=== PATIENT | female | born 1955 | race Caucasian/White ===

== ENCOUNTER 2019-08-05 13:23 | Inpatient (IN) | payer OTHER, SELFPAY ==
[2019-08-05] VITALS (13 sets, daily range): BP systolic 110–158; BP diastolic 75–103; PULSE 57–112; RESP 16–21; TEMP 36–36.8; O2SAT 92–97; BMI 26.6; BMI 27.2
--- NOTE | ~2019-08-05 | XR_ITS ---
EXAMINATION: XR chest 2V DATE: 08/05/2019 14:32 INDICATION: Chest pain TECHNIQUE: PA and lateral views of the chest were obtained. COMPARISON: Chest radiograph dated 03/31/2018 FINDINGS: Right lower lobar airspace opacities projecting over the right hemidiaphragm. There is blunting at th e right posterior sulcus suggesting small right pleural effusion. Mild left infrahilar opacities. No pneumothorax. The cardiomediastinal silhouette is normal. Atherosclerotic aorta. IMPRESSION: 1. Airspace opacities in the right lower lobe and left infrahilar region which could represent atelec tasis or pneumonia. 2. Possible small right pleural effusion. Reviewed, dictated and finalized at location A. GRADUATE INTERN IMPRESSION: 1. Airspace opacities in the right lower lobe and left infrahilar region which could represent atelectasis or pneumonia. 2. Possible small right pleural effusion.
--- NOTE | 2019-08-05 13:35 | ECG_ITS ---
Measurements Intervals [place] Rate: 89 P: VA: 0 QRS: -32 QRSD: 127 T: 46 QT: 399 QTc: 488 Interpretive Statements ATRIAL FIBRILLATION LEFT AXIS DEVIATION LEFT BUNDLE BRANCH BLOCK BASELINE ARTIFACT- I, II, III, V5-V6 ABNORMAL ECG Electronically Signed On 08-05-2019 14:21:17 STUDENT ASSISTANT by Zac Harvey D.O.
[2019-08-05 13:49] LABS: Basophils Percent Auto 0.6 % (0.2-1.2); Eosinophils Absolute Auto 0.2 K/mm3 (0-0.3); Eosinophils Percent Auto 2.2 % (0-4.4); Hematocrit 35.9 % (37.0-47.0); Hemoglobin 10.8 g/dL (12.0-15.0); Immature Granulocyte Absolute 0.03 K/mm3 (0.00-0.031); Immature Granulocyte Percent A 0.4 % (0-0.5); Lymphocytes Absolute Auto 1.21 K/mm3 (0.9-3.2); Lymphocytes Percent Auto 18.1 % (18.3-44.2); Mean Corpuscular HGB Conc 30.1 g/dl (32-36); Mean Corpuscular Hemoglobin 27.6 pg (26-34); Mean Corpuscular Volume 91.8 fl (80-100); Monocytes Absolute Auto 0.4 K/mm3 (0.1-0.6); Neutrophils Absolute Auto 4.9 K/mm3 (1.3-6.7); Neutrophils Percent Auto 72.7 % (45.5-73.1); Platelet Count Result 204 k/mm3 (150-375); Red Blood Count 3.91 M/mm3 (4.2-5.4); Red Cell Distribution Width 16.9 % (11.5-14.5); White Blood Count 6.7 K/mm3 (4.5-10.0)
[2019-08-05 13:58] LABS: INR 1.2; Prothrombin Time 14.7 Seconds (11.1-14.7)
[2019-08-05 13:59] LABS: Partial Thromboplastin Time 29.3 SECONDS (22.3-36.8)
[2019-08-05 14:01] LABS: Blood Urea Nitrogen 11 mg/dL (7-17); Calcium 9.2 mg/dL (8.4-10.2); Carbon Dioxide 26 mmol/L (22-30); Chloride 102 mmol/L (98-107); Estimated CRCL calculation 82 ml/min; Estimated Glomerular Filt Rate > 60; Glucose 172 mg/dL (65-105); Potassium 3.9 mmol/L (3.4-5.0); Sodium 140 mmol/L (137-145)
[2019-08-05 14:12] LABS: Troponin I < 0.012 ng/mL (0.000-0.034)
--- NOTE | 2019-08-05 14:47 | ED.ARRPALP ---
HPI - Arrhythmia/Palpitations General Chief Complaint: Chest Pain Stated Complaint: chest heavyness, palp Time Seen by Provider: 08/05/19 14:28 Source: patient and RN notes reviewed Mode of arrival: ambulatory Limitations: no limitations History of Present Illness HPI narrative: Pt is a y/o female who presents to the ED with c/o heart palpitations. Pt states she started to experience SOB , chest heaviness, and dizziness last night when she was walking from the car to her house. She had to stop before she could get into the house. Pt states she saw Dr. Ramos today and was prompted to come here. Pt states she does not have any symptoms besides the heart palpitations at rest. Pt reports a subjective fever, a cough, and diaphoresis, but denies BLE edema. Pt reports being on Eliquis anticoagulants, and Metoprolol with her most recent dose taken this morning. She will take another dose this evening. Pt also reports a PMHx of a STENT and Afib. MD complaint: heart racing Onset (ago): day(s) (last evening) Duration: constant Arrhythmia history: atrial fibrillation Associated symptoms: shortness of breath, diaphoresis and other (chest heaviness; dizziness; subjective fever; cough) Related Data Allergies Allergy/AdvReac Type Severity Reaction Status Date / Time cephalexin Allergy Unknown Nausea Verified 08/05/19 14:24 codeine Allergy Unknown Unknown Verified 08/05/19 14:24 Sulfa (Sulfonamide Allergy Unknown Unknown Verified 08/05/19 14:24 Antibiotics) ciprofloxacin AdvReac Unknown stomach Verified 08/05/19 14:24 ache, pains Review of Systems Review of Systems: All systems reviewed & are unremarkable except as noted in HPI and below Constitutional: Constitutional: Reports fever(s) (subjective) Cardiovascular: Cardiovascular: Reports diaphoresis, Denies edema (BLE), Reports palpitations and Reports other (chest heaviness) Respiratory: Respiratory: Reports cough and Reports dyspnea Neurologic: Reports dizziness PMFSH Past Medical History Medical History (Updated 08/05/19 @ 16:56 by Delia Tran MD) Afib Ankle fracture, right Anxiety Arthritis Depression Diabetes Hypercholesterolemia Hypertension Neuropathy UTI (urinary tract infection) Surgical History Surgical History (Updated 08/05/19 @ 14:55 by Nanci Abdi) H/O cardiac catheterization History of tubal ligation Social History Social History (Updated 08/05/19 @ 14:53 by Nanci Abdi) Smoking status: Never smoker Gender identity (if verbalized by the patient): Female Comments Dr. Live Exam Narrative: Exam Narrative: GENERAL: Well-appearing, well-nourished, and in no acute distress. HEAD: Normocephalic, atraumatic EYES: PERRLA and EOMI, conjunctiva clear without discharge THROAT:Mucous membranes moist, Oropharynx normal without erythema, exudate, peritonsillar swelling or fluctuance NECK: Supple, without lymphadenopathy or mass RESPIRATORY: No respiratory distress, Airway patent, Respirations non-labored, Clear to auscultation without rales, rhonchi or wheeze ABDOMEN: Soft, nontender, nondistended, normal active bowel sounds. No masses. No rebound or guarding, No organomegaly. EXTREMITIES: No edema, normal strength with full range of motion. SKIN: Warm, dry, normal color without rash NEURO: Alert and oriented x3. CN 2-12 grossly intact. No focal deficits. PSYCH: Normal mood and affect. Cardio: Rate: tachycardic Rhythm: abnormal rhythm irregularly irregular Course Course Emergency Course: Patient presented to ER from Dr. Lorenzo's office with c/o midsternal chest pressure and heart racing with exertion. Patient is painfree in ER. She has history of CAD with stent so she is high risk with chest pain. so she will be admitted. PAtient's rate ranges from 90 to 105. She may need adjustment of some medications. Patient reported cough but she has no fever and no elevated wbc. Consultations Consultation #1: Discussed case wit
[2019-08-05 15:36] LABS: NT Pro B Type Natriuretic Pept 5630 PG/ML (5-100)
[2019-08-05] MEDS: ASPIRIN 81 MG CHEWABLE TABLET 324 MG PO (15:51)
[2019-08-05] MEDS: DOXYCYCLINE HYCLATE 100 MG TABLET PO (15:52)
[2019-08-05 18:16] LABS: Troponin I < 0.012 ng/mL (0.000-0.034)
--- NOTE | 2019-08-05 18:25 | PM.CNCAR ---
Assessment and Plan Additional Plan Current symptoms are somewhat suggestive of myocardial ischemia. Patient's atrial fibrillation is chronic and appears to be relatively well controlled. Recent echocardiogram does not show evidence of systolic LV dysfunction or significant valvulopathy. I would recommend scheduling in arranging for follow-up coronary angiography. This will be scheduled on Thursday morning her apixaban needs to be discontinued so that can proceed without undo hemorrhagic risk the remainder of her medical regimen should be continued as per her home meds History of Present Illness History of Present Illness Consult date/time: 08/05/19 18:25 Reason For Visit: chest pain/chronic atrial fibrilation Narrative: This is a 63-year-old woman with whom I have no previous a interactions with but apparently she has a history of coronary artery disease and chronic atrial fibrillation. She was admitted to the hospital after being directed to the emergency room from our office when she had an appointment today with Dr. Lorenzo. The patient appears to be in no distress lying in bed watching television when I came in the room to see her. She states that she wanted to be seen in the office today because she was not feeling well for the last 2 or 3 weeks. Her principal symptoms are the sense of exertional shortness of breath. She is also experiencing some exertional central chest heaviness. Patient states that prior to several weeks ago she has not been having the symptoms she feels that normally she can conduct her activities of daily living without too much trouble but at this point with minimal activity she is having the symptoms. She not having any other sense of orthopnea PND or accumulating edema. When she reported these symptoms in the office earlier today she was directed to the emergency room and admitted. I have reviewed her record which goes back a couple of years prior to see her this evening. Apparently she has a history of chronic atrial fibrillation which dates back to many years she also has a history of coronary artery disease she had some ischemic symptoms and underwent angiography here at [facility] in May of 2017. Apparently she had a high-grade lesion in the right right PDA that was treated successfully with a drug-eluting stent by Dr. Lake. She has been followed with Dr. cates in the office since she left the practice. The last 2 years of office notes indicate occasional episodes of course she is complaining of exertional shortness of breath and other times when she is not. She I believe she has had at least 1 if not 2 nuclear stress is in follow-up since her intervention which have not shown any substantial abnormalities. By echocardiogram she is known to have normal left ventricular systolic function and mild mitral valve regurgitation. The patient's vital signs are essentially stable her she is in atrial fib with the relatively well-controlled ventricular response at least at bed rest her biomarkers at least on the 1st set do not show any evidence of acute coronary syndrome. Had a lengthy discussion with the patient about the fact that she probably needs to have an ischemia evaluation given the symptoms and the options of nuclear stress testing and/or follow-up angiography were discussed in detail. Review of Systems Constitutional: Constitutional: Reports fatigue Eyes: Eyes: Reports no additional eye complaints ENT: Reports system reviewed and no additional complaints, except as documented Cardiovascular: Cardiovascular: Reports chest pain and Reports palpitations Respiratory: Respiratory: Reports dyspnea and Reports dyspnea on exertion Gastrointestinal: Gastrointestinal: Reports no additional gastrointestinal complaints Genitourinary: Genitourinary: Reports no additional female genitourinary complaints Musculoskeletal: Musculoskeletal: Reports no additional musculoskeletal complaints Integumentary/Lakshmi
--- NOTE | 2019-08-05 19:42 | PM.IMHP ---
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 The patient is known to have chronic atrial fibrillation and is chronically anticoagulated with Eliquis. She reports having intermittent chest pain with exertional activities over the past couple of weeks. Today while she was at her doctor's office she started to experience chest pain with associated shortness of breath. She also experience palpitations. She tells me that recently she has been battling multiple UTIs and just finished a course of antibiotics a few days ago when she had a urinary tract infection with associated hematuria. She also reports that over the past few days she started having dysuria once again. She denies any active hematuria at this time. The patient also does report a subjective fever and nonproductive coughing but denies any significant lower extremity swelling, headache, focal neurological symptoms, nausea, vomiting, diarrhea, or rectal bleeding. The patient was evaluated emergency room today and her initial and 2nd troponin are negative. EKG was performed which demonstrated atrial fibrillation but no significant ST segment elevation or depression. Cardiology has been consulted by ER provider and has already evaluated the patient at bedside. She has no other complaints at this time and currently she is chest pain-free. She currently also denies any palpitations or other symptoms. Review of Systems Review of Systems: All systems reviewed & are unremarkable except as noted in HPI and below PMFSH Past Medical History Medical History Afib Ankle fracture, right Anxiety Arthritis Depression Diabetes Hypercholesterolemia Hypertension Neuropathy UTI (urinary tract infection) Surgical History Surgical History H/O cardiac catheterization History of tubal ligation Family History Family History Father Acute myocardial infarction Mother Diabetes mellitus Social History Social History Smoking status: Never smoker Alcohol intake: never Substance use: never Gender identity (if verbalized by the patient): Female Spiritual care concerns: No Agree to blood products: Yes Meds Home Medications and Allergies Home Medications Medication Instructions Recorded Confirmed Type alprazolam 0.5 mg PO TID 08/05/19 08/05/19 History apixaban [Eliquis] 5 mg PO BID 08/05/19 08/05/19 History cholecalciferol (vitamin D3) 2,000 unit PO DAILY 08/05/19 08/05/19 History [Vitamin D3] clopidogrel 75 mg PO DAILY 08/05/19 08/05/19 History cyanocobalamin (vitamin B-12) 1,000 mcg PO DAILY 08/05/19 08/05/19 History [Vitamin B-12] cyclobenzaprine 10 mg PO TID 08/05/19 08/05/19 History ferrous gluconate 324 mg PO DAILY 08/05/19 08/05/19 History furosemide 40 mg PO DAILY 08/05/19 08/05/19 History glipizide 2.5 mg PO DAILY 08/05/19 08/05/19 History lisinopril 5 mg PO DAILY 08/05/19 08/05/19 History magnesium oxide 400 mg PO BID 08/05/19 08/05/19 History metformin [Glucophage] 1,000 mg PO DAILY 08/05/19 08/05/19 History metoprolol tartrate 100 mg PO BID 08/05/19 08/05/19 History multivit with min-folic acid 1 mg PO DAILY 08/05/19 08/05/19 History [Adult One Daily Multivitamin] oxycodone-acetaminophen 1 tablet PO Q6H PRN 08/05/19 08/05/19 History paroxetine HCl 40 mg PO DAILY 08/05/19 08/05/19 History potassium chloride 10 meq PO DAILY 08/05/19 08/05/19 History pregabalin [Lyrica] 150 mg PO QID 08/05/19 08/05/19 History rosuvastatin [Crestor] 10 mg PO DAILY
[2019-08-05 20:32] LABS: Glucose Point of Care 181 (65-105)
[2019-08-05 20:43] LABS: Basophils Percent Auto 0.4 % (0.2-1.2); Eosinophils Absolute Auto 0.2 K/mm3 (0-0.3); Eosinophils Percent Auto 2.8 % (0-4.4); Hematocrit 30.8 % (37.0-47.0); Hemoglobin 9.6 g/dL (12.0-15.0); Immature Granulocyte Absolute 0.02 K/mm3 (0.00-0.031); Immature Granulocyte Percent A 0.4 % (0-0.5); Lymphocytes Percent Auto 18.7 % (18.3-44.2); Mean Corpuscular HGB Conc 31.2 g/dl (32-36); Mean Corpuscular Hemoglobin 27.8 pg (26-34); Mean Corpuscular Volume 89.3 fl (80-100); Mean Platelet Volume 10.7 fl (7.4-10.4); Monocytes Absolute Auto 0.3 K/mm3 (0.1-0.6); Neutrophils Absolute Auto 3.8 K/mm3 (1.3-6.7); Neutrophils Percent Auto 71.7 % (45.5-73.1); Platelet Count Result 161 k/mm3 (150-375); Red Blood Count 3.45 M/mm3 (4.2-5.4); Red Cell Distribution Width 16.7 % (11.5-14.5); White Blood Count 5.4 K/mm3 (4.5-10.0)
[2019-08-05 20:53] LABS: INR 1.2; Prothrombin Time 14.5 Seconds (11.1-14.7)
[2019-08-05 20:54] LABS: Partial Thromboplastin Time 29.6 SECONDS (22.3-36.8)
[2019-08-05 21:06] LABS: Troponin I < 0.012 ng/mL (0.000-0.034)
[2019-08-05 21:08] LABS: Add Urine Microscopic? YES; Appearance Urine Clear (Clear); Bilirubin Urine Negative (Negative); Blood Urine 2+ (Negative); Color Urine Yellow (Yellow); Glucose Urine UA Negative (Negative); Ketones Urine Negative (Negative); Leukocyte Esterase Ur 3+ LEU/UL (NEGATIVE); Nitrate Urine Negative (Negative); Protein Urine Negative (Negative); Specific Grav Ur 1.011 (1.001-1.035); Squamous Epithelial Cell Urine Rare /hpf (Few); Urobilinogen Urine Negative mg/dL (<2.0); WBC Urine >75 /hpf (0-3)
[2019-08-05] MEDS: TRAZODONE HCL 50 MG TABLET PO (21:16)
[2019-08-05] MEDS: PREGABALIN 75 MG CAPSULE 150 MG PO (21:17)
[2019-08-05] MEDS: METOPROLOL TARTRATE 50 MG TAB 100 MG PO (21:17)
[2019-08-05] MEDS: HEPARIN SOD/D5W 100 UNITS/ML 25,000 UNITS/250 ML BAG 7 UNITS IV CONT (21:18)
[2019-08-05] MEDS: ALPRAZOLAM 0.5 MG TABLET PO (21:18)
[2019-08-05] MEDS: HEPARIN SODIUM 5,000 UNITS/ML VIAL 3500 UNITS IV PUSH (21:18)
[2019-08-06] VITALS (16 sets, daily range): BP systolic 121–155; BP diastolic 68–96; PULSE 85–109; RESP 12–20; TEMP 36.1–36.8; O2SAT 90–96
[2019-08-06 03:56] LABS: Basophils Percent Auto 0.5 % (0.2-1.2); Eosinophils Absolute Auto 0.2 K/mm3 (0-0.3); Eosinophils Percent Auto 2.5 % (0-4.4); Hematocrit 36.6 % (37.0-47.0); Hemoglobin 10.9 g/dL (12.0-15.0); Immature Granulocyte Absolute 0.02 K/mm3 (0.00-0.031); Immature Granulocyte Percent A 0.3 % (0-0.5); Lymphocytes Absolute Auto 1.39 K/mm3 (0.9-3.2); Lymphocytes Percent Auto 22.9 % (18.3-44.2); Mean Corpuscular HGB Conc 29.8 g/dl (32-36); Mean Corpuscular Hemoglobin 27.4 pg (26-34); Monocytes Absolute Auto 0.3 K/mm3 (0.1-0.6); Monocytes Percent Auto 4.6 % (2.6-8.5); Neutrophils Absolute Auto 4.2 K/mm3 (1.3-6.7); Neutrophils Percent Auto 69.2 % (45.5-73.1); Platelet Count Result 192 k/mm3 (150-375); Red Blood Count 3.98 M/mm3 (4.2-5.4); Red Cell Distribution Width 16.9 % (11.5-14.5); White Blood Count 6.1 K/mm3 (4.5-10.0)
[2019-08-06 04:00] LABS: Partial Thromboplastin Time 35.9 SECONDS (22.3-36.8)
[2019-08-06 04:16] LABS: Platelet Estimate Adequate (Adequate)
[2019-08-06 04:17] LABS: Microcytosis 1+ (NORMAL)
[2019-08-06 04:18] LABS: Ovalocytes 1+ (NORMAL)
[2019-08-06] MEDS: HEPARIN SODIUM 5,000 UNITS/ML VIAL 4000 UNITS IV PUSH ×2 (05:04→18:04)
[2019-08-06] MEDS: glipiZIDE XL 2.5 MG TAB.ER.24 PO (09:04)
[2019-08-06] MEDS: FUROSEMIDE 40 MG TABLET PO (09:04)
[2019-08-06] MEDS: ALPRAZOLAM 0.5 MG TABLET PO ×3 (09:05→21:13)
[2019-08-06] MEDS: PREGABALIN 75 MG CAPSULE 150 MG PO ×3 (09:05→21:13)
[2019-08-06] MEDS: POTASSIUM CHLORIDE 10 MEQ TABLET.ER PO (09:05)
[2019-08-06] MEDS: METOPROLOL TARTRATE 50 MG TAB 100 MG PO ×2 (09:06→18:03)
[2019-08-06] MEDS: CHOLECALCIFEROL 1,000 UNIT TABLET 2000 UNITS PO (09:06)
[2019-08-06] MEDS: metFORMIN HCL 500 MG TABLET 1000 MG PO (09:06)
[2019-08-06] MEDS: ROSUVASTATIN 10 MG TABLET PO (09:06)
[2019-08-06] MEDS: CYANOCOBALAMIN 1,000 MCG TABLET 1000 MCG PO (09:07)
[2019-08-06] MEDS: PAROXETINE 20 MG TABLET 40 MG PO (09:07)
[2019-08-06 09:31] LABS: Glucose Point of Care 158 (65-105)
--- NOTE | 2019-08-06 10:48 | PM.PNCARD ---
Progress Note: A&P Additional Plan Plans are to conduct ischemia evaluation with follow-up coronary angiography on Thursday Hospitalists have initiated IV heparin which is reasonable Plan to did discontinue this on Thursday morning prior to angiography Further recommendations are pending angiographic findings Time Spent With Patient Time with patient: less than 15 minutes Subjective Interval history: Asymptomatic at bed rest Reports RVR and shortness of breath with modest activity continues Exam Const: General: comfortable and no acute distress HENMT: Mouth: Yes moist mucous membranes Eyes: Sclera: sclerae normal Pupils: PERRL Neck: Neck: supple and no JVD Thyroid: thyroid normal Resp: Effort & Inspection: normal respiratory effort Auscultation: clear to auscultation bilaterally Cardio: Rhythm: abnormal rhythm regularly irregular Skin: General skin exam: normal color Extrem: General: normal to inspection Objective Data Vital Signs Vital Signs: Vital Signs - 24 hr 08/05/19 13:31 08/05/19 14:20 08/05/19 14:22 Temperature 36.0 C L 36.8 C Pulse Rate 70 112 H 108 H Respiratory Rate 16 16 Blood Pressure 110/75 157/103 H Pulse Oximetry 95 96 08/05/19 15:05 08/05/19 15:18 08/05/19 15:44 Temperature Pulse Rate 89 57 L 95 Respiratory Rate 16 18 Blood Pressure 155/103 H 152/94 H 142/89 H Pulse Oximetry 97 96 08/05/19 15:50 08/05/19 16:39 08/05/19 17:04 Temperature 36.4 C Pulse Rate 95 95 106 H Respiratory Rate 21 H 16 18 Blood Pressure 130/78 130/78 158/95 H Pulse Oximetry 96 96 92 08/05/19 18:00 08/05/19 20:00 08/05/19 21:17 Temperature 36.3 C L Pulse Rate 108 H 102 H 101 H Respiratory Rate 16 Blood Pressure 134/75 Pulse Oximetry 93 08/05/19 22:00 08/06/19 00:00 08/06/19 02:00 Temperature 36.1 C L Pulse Rate 99 93 87 Respiratory Rate 20 Blood Pressure 128/95 H Pulse Oximetry 90 08/06/19 04:00 08/06/19 06:00 08/06/19 08:00 Temperature 36.6 C Pulse Rate 87 98 109 H Respiratory Rate 16 Blood Pressure 140/96 H Pulse Oximetry 96 08/06/19 08:40 08/06/19 09:06 08/06/19 10:00 Temperature 36.1 C L Pulse Rate 106 H 95 108 H Respiratory Rate 12 Blood Pressure 155/89 H Pulse Oximetry 93 Intake/Output Intake/Output: Intake & Output 08/03/19 08/04/19 08/05/19 08/06/19 23:59 23:59 23:59 23:59 Intake Total 933 Output Total 200 1200 Balance -200 -267 Meds/Results Medications: Active Medications Generic Name Dose Route Start Last Admin Trade Name Freq PRN Reason Stop Dose Admin Alprazolam 0.5 mg 08/05/19 17:00 08/06/19 09:05 Xanax PO 0.5 mg TID PATRICIA Administration Cyanocobalamin 1,000 mcg 08/06/19 09:00 08/06/19 09:07 Vitamin B-12 Tab PO 1,000 mcg DAILY PATRICIA Administration Cyclobenzaprine HCl 10 mg 08/06/19 21:00 Flexeril PO HS PATRICIA Dextrose 12.5 gm 08/05/19 19:55 Dextrose 50% Syringe IV PUSH PRN PRN Hypoglycemia Protocol Furosemide 40 mg 08/06/19 09:00 08/06/19 09:04 Lasix Tablet PO 40 mg DAILY PATRICIA Administration Glipizide 2.5 mg 08/06/19 09:00 08/06/19 09:04 Glucotrol Xl PO 2.5 mg DAILY PATRICIA Administration Glucagon 1 mg 08/05/19 19:55 Glucagon For Inj IM PRN PRN Hypoglycemia Protocol Glucose 15 gm 08/05/19 19:55 Glutose 15 PO PRN PRN Hypoglycemia Protocol Heparin Sodium (Porcine) 4,000 units 08/05/19 19:54 08/06/19 05:04 Heparin Sodium IV PUSH 4,000 units PRN PRN Administration aPTT less than 55 seconds Heparin Sodium (Porcine) 2,000 units 08/05/19 19:54 Heparin Sodium IV PUSH PRN PRN aPTT 55 - 70 seconds Heparin Sodium/Dextrose 25,000 units in 250 mls @ 9 mls/hr 08/05/19 20:35 08/06/19 05:10 Heparin Sodium/D5w 100 Units/Ml IV CONT 900 units/hr .Q24H PATRICIA 9 mls/hr Titration Protocol 900 UNITS/HR Dextrose 1,000 mls @ 100 mls/hr 12
[2019-08-06] MEDS: MAGNESIUM OXIDE 400 MG TABLET PO (10:50)
[2019-08-06 11:15] LABS: Partial Thromboplastin Time 64.9 SECONDS (22.3-36.8)
[2019-08-06] MEDS: HEPARIN SODIUM 5,000 UNITS/ML VIAL 2000 UNITS IV PUSH (11:31)
[2019-08-06 12:10] LABS: Glucose Point of Care 202 (65-105)
--- NOTE | 2019-08-06 13:38 | PM.IMPN ---
Progress Note: A&P Assessment and Plan (1) Chest pain: Qualifiers: Chest pain type: unspecified Qualified Code(s): R07.9 - Chest pain, unspecified Code(s): R07.9 - Chest pain, unspecified Status: Acute Assessment and Plan: Patient has been admitted to IMU for observation, continue telemetry. Continue aspirin therapy. Pain and treat any acute chest pain or nitroglycerin. trend troponin, pt to have heart cath on thursday as she is high risk, History of , AF, DM and previous CAD with stent, high risk.Pt to continue on heparin drip for now. (2) Dysuria: Code(s): R30.0 - Dysuria Status: Acute Assessment and Plan: Will check a urinalysis reflex culture. Pt is being treated for UTI, pt to follow with Urology for her recurrent urinary symptoms. (3) Diabetes: Code(s): E11.9 - Type 2 diabetes mellitus without complications Status: Chronic Assessment and Plan: Accu-Cheks, sliding scale insulin coverage. Continue home metformin and glipizide. (4) Hypertension: Code(s): I10 - Essential (primary) hypertension Status: Chronic Assessment and Plan: Monitor blood pressure. continue beta-martine. (5) Afib: Qualifiers: Atrial fibrillation type: other persistent Qualified Code(s): I48.19 - Other persistent atrial fibrillation Code(s): I48.91 - Unspecified atrial fibrillation Status: Chronic Assessment and Plan: Currently rate controlled. Continue aspirin therapy. Will hold Eliquis for now. Pt to continue on heparin drip for now, for anticoagulation (6) Hypercholesterolemia: Code(s): E78.00 - Pure hypercholesterolemia, unspecified Status: Chronic Assessment and Plan: Continue statin therapy. (7) Neuropathy: Code(s): G62.9 - Polyneuropathy, unspecified Status: Chronic Assessment and Plan: Continue cyclobenzaprine (8) Normocytic anemia: Code(s): D64.9 - Anemia, unspecified Status: Acute Assessment and Plan: Likely anemia of chronic disease.Monitor H&H. Transfuse p.r.n.. 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 The patient is known to have chronic atrial fibrillation and is chronically anticoagulated with Eliquis. Pt sees DR Jacinto, pt having ongoing, retrosternal chest pain. Pt for heart cath on thursday. Review of Systems Review of Systems: All systems reviewed & are unremarkable except as noted in HPI and below Exam Const: General: cooperative, no acute distress, alert and awake Nutritional Appearance: obese Orientation/consciousness: oriented x3 HENMT: Head: normal to inspection General nose exam: external nose normal Face and sinus: normal facial exam Mouth: Yes oral mucosae normal and Yes oropharynx normal Eyes: Pupils: PERRL EOM: EOM intact bilaterally Neck: Neck: supple and no JVD Thyroid: thyroid normal Lymphatic: lymphadenopathy not noted Resp: Effort & Inspection: normal respiratory effort Auscultation: clear to auscultation bilaterally Cardio: Rate: tachycardic Rhythm: abnormal rhythm irregularly irregular Heart sounds: no murmurs GI: Inspection: normal to inspection Auscultation: normal bowel sounds Skin: General skin exam: normal color and no rashes or lesions noted Neuro: General: oriented x3 Cranial nerves: Yes CN's II-XII intact bilaterally and Yes PERRL Speech: normal speech Motor exam (neuro): strength 5/5 throughout Sensory Exam: normal sensation Extrem: General: normal to inspection and edema (Mild bilateral edema) Psych: Mental Status: mental status grossly normal Affect: normal affect Objective Data Vital Signs Vital Signs: Vital Signs - 24 hr 08/05/19 14:20 08/05/19 14:22
[2019-08-06 17:18] LABS: Glucose Point of Care 198 (65-105)
[2019-08-06 19:55] LABS: Glucose Point of Care 131 (65-105)
[2019-08-06] MEDS: TRAZODONE HCL 50 MG TABLET PO (21:13)
[2019-08-06] MEDS: CYCLOBENZAPRINE HCL 10 MG TABLET PO (21:13)
[2019-08-06] MEDS: HEPARIN SOD/D5W 100 UNITS/ML 25,000 UNITS/250 ML BAG 12 UNITS IV CONT (21:14)
[2019-08-07] VITALS (15 sets, daily range): BP systolic 128–163; BP diastolic 77–98; PULSE 85–111; RESP 12–18; TEMP 35.6–36.9; O2SAT 92–97
[2019-08-07 01:25] LABS: Partial Thromboplastin Time 81.1 SECONDS (22.3-36.8)
[2019-08-07 07:16] LABS: Blood Urea Nitrogen 11 mg/dL (7-17); Calcium 8.4 mg/dL (8.4-10.2); Carbon Dioxide 29 mmol/L (22-30); Chloride 102 mmol/L (98-107); Estimated CRCL calculation 82 ml/min; Estimated Glomerular Filt Rate > 60; Glucose 182 mg/dL (65-105); Potassium 3.3 mmol/L (3.4-5.0); Sodium 139 mmol/L (137-145)
[2019-08-07 07:48] LABS: Partial Thromboplastin Time 86.1 SECONDS (22.3-36.8)
[2019-08-07 08:33] LABS: Glucose Point of Care 203 (65-105)
--- NOTE | 2019-08-07 09:57 | PM.PNCARD ---
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 Further recommendations are pending completion of that procedure tomorrow Subjective Interval history: Patient reports to be comfortable this morning. Lengthy discussion about the patient regarding tomorrow's planned catheterization and need to discontinue heparin in the morning prior to the procedure Exam Const: General: comfortable and no acute distress HENMT: Mouth: Yes moist mucous membranes Eyes: Sclera: sclerae normal Pupils: PERRL Neck: Neck: supple and no JVD Thyroid: thyroid normal Resp: Effort & Inspection: normal respiratory effort Auscultation: clear to auscultation bilaterally Cardio: Rhythm: abnormal rhythm irregularly irregular Skin: General skin exam: normal color Extrem: General: normal to inspection Objective Data Vital Signs Vital Signs: Vital Signs - 24 hr 08/06/19 10:00 08/06/19 12:00 08/06/19 14:00 Temperature 36.8 C Pulse Rate 108 H 92 97 Respiratory Rate 16 Blood Pressure 142/89 H Pulse Oximetry 95 08/06/19 16:00 08/06/19 18:00 08/06/19 18:03 Temperature 36.1 C L Pulse Rate 104 H 109 H 109 H Respiratory Rate 16 Blood Pressure 136/94 H Pulse Oximetry 96 08/06/19 19:34 08/06/19 20:00 08/06/19 21:58 Temperature 36.8 C Pulse Rate 85 91 87 Respiratory Rate 16 Blood Pressure 121/68 Pulse Oximetry 92 08/07/19 00:00 08/07/19 02:00 08/07/19 04:00 Temperature 36.9 C Pulse Rate 88 87 92 Respiratory Rate 16 Blood Pressure 163/80 H Pulse Oximetry 96 08/07/19 05:55 08/07/19 08:00 08/07/19 08:15 Temperature 36.1 C L Pulse Rate 92 110 H 111 H Respiratory Rate 12 Blood Pressure 131/91 H Pulse Oximetry 95 Intake/Output Intake/Output: Intake & Output 08/04/19 08/05/19 08/06/19 08/07/19 23:59 23:59 23:59 23:59 Intake Total 2155 350 Output Total 200 1200 400 Balance -200 955 -50 Meds/Results Medications: Active Medications Generic Name Dose Route Start Last Admin Trade Name Freq PRN Reason Stop Dose Admin Alprazolam 0.5 mg 08/05/19 17:00 08/06/19 21:13 Xanax PO 0.5 mg TID PATRICIA Administration Cyanocobalamin 1,000 mcg 08/06/19 09:00 08/06/19 09:07 Vitamin B-12 Tab PO 1,000 mcg DAILY PATRICIA Administration Cyclobenzaprine HCl 10 mg 08/06/19 21:00 08/06/19 21:13 Flexeril PO 10 mg HS PATRICIA Administration Dextrose 12.5 gm 08/05/19 19:55 Dextrose 50% Syringe IV PUSH PRN PRN Hypoglycemia Protocol Furosemide 40 mg 08/06/19 09:00 08/06/19 09:04 Lasix Tablet PO 40 mg DAILY PATRICIA Administration Glipizide 2.5 mg 08/06/19 09:00 08/06/19 09:04 Glucotrol Xl PO 2.5 mg DAILY PATRICIA Administration Glucagon 1 mg 08/05/19 19:55 Glucagon For Inj IM PRN PRN Hypoglycemia Protocol Glucose 15 gm 08/05/19 19:55 Glutose 15 PO PRN PRN Hypoglycemia Protocol Heparin Sodium (Porcine) 4,000 units 08/05/19 19:54 08/06/19 18:04 Heparin Sodium IV PUSH 4,000 units PRN PRN Administration aPTT less than 55 seconds Heparin Sodium (Porcine) 2,000 units 08/05/19 19:54 08/06/19 11:31 Heparin Sodium IV PUSH 2,000 units PRN PRN Administration aPTT 55 - 70 seconds Heparin Sodium/Dextrose 25,000 units in 250 mls @ 12 mls/hr 08/05/19 20:35 08/07/19 07:50 Heparin Sodium/D5w 100 Units/Ml IV CONT 1,200 units/hr .[id number] PATRICIA 12 mls/hr Titration Protocol Dextrose 1,000 mls @ 100 mls/hr 08/05/19 19:55 Dextrose 5% 1,000 Ml IVPB PRN PRN Hypoglycemia Protocol Ceftriaxone Sodium/Dextrose 1 gm in 50 mls @ 100 mls/hr 08/06/19 22:00 08/07/19 07:36 Rocephin 1 Gm/D5w 50 Ml IVPB Infused Q24H PATRICIA Infusion Insulin Aspart 3 - 6 units 08/06/19 08:00 08/07/19 09:54 Novolog SUB-Q Not Given [facility]
[2019-08-07] MEDS: CYANOCOBALAMIN 1,000 MCG TABLET 1000 MCG PO (10:01)
[2019-08-07] MEDS: glipiZIDE XL 2.5 MG TAB.ER.24 PO (10:01)
[2019-08-07] MEDS: CHOLECALCIFEROL 1,000 UNIT TABLET 2000 UNITS PO (10:01)
[2019-08-07] MEDS: ALPRAZOLAM 0.5 MG TABLET PO ×3 (10:01→20:42)
[2019-08-07] MEDS: PREGABALIN 75 MG CAPSULE 150 MG PO ×3 (10:01→20:43)
[2019-08-07] MEDS: METOPROLOL TARTRATE 50 MG TAB 100 MG PO ×2 (10:01→17:13)
[2019-08-07] MEDS: FUROSEMIDE 40 MG TABLET PO (10:01)
[2019-08-07] MEDS: PAROXETINE 20 MG TABLET 40 MG PO (10:02)
[2019-08-07] MEDS: POTASSIUM CHLORIDE 10 MEQ TABLET.ER PO (10:02)
[2019-08-07] MEDS: metFORMIN HCL 500 MG TABLET 1000 MG PO (10:02)
[2019-08-07] MEDS: ROSUVASTATIN 10 MG TABLET PO (10:02)
[2019-08-07] MEDS: MAGNESIUM OXIDE 400 MG TABLET PO (10:02)
[2019-08-07 12:04] LABS: Glucose Point of Care 157 (65-105)
--- NOTE | 2019-08-07 13:30 | PM.IMPN ---
Progress Note: A&P Assessment and Plan (1) Chest pain: Qualifiers: Chest pain type: unspecified Qualified Code(s): R07.9 - Chest pain, unspecified Code(s): R07.9 - Chest pain, unspecified Status: Acute Assessment and Plan: Patient has been admitted to IMU for observation, continue telemetry. Continue aspirin therapy. Pain and treat any acute chest pain with nitroglycerin.pt to have heart cath on thursday as she is high risk, History of , AF, DM and previous CAD with stent, high risk.Pt to continue on heparin drip for now. (2) Dysuria: Code(s): R30.0 - Dysuria Status: Acute Assessment and Plan: Will check a urinalysis reflex culture. Pt is being treated for UTI, pt to follow with Urology for her recurrent urinary symptoms. (3) Diabetes: Code(s): E11.9 - Type 2 diabetes mellitus without complications Status: Chronic Assessment and Plan: Accu-Cheks, sliding scale insulin coverage. Continue home metformin and glipizide. (4) Hypertension: Code(s): I10 - Essential (primary) hypertension Status: Chronic Assessment and Plan: Monitor blood pressure. continue beta-martine. (5) Afib: Qualifiers: Atrial fibrillation type: other persistent Qualified Code(s): I48.19 - Other persistent atrial fibrillation Code(s): I48.91 - Unspecified atrial fibrillation Status: Chronic Assessment and Plan: Currently rate controlled. Continue aspirin therapy and beta martine. Will hold Eliquis for now. Pt to continue on heparin drip for now, for anticoagulation (6) Hypercholesterolemia: Code(s): E78.00 - Pure hypercholesterolemia, unspecified Status: Chronic Assessment and Plan: Continue statin therapy. 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 The patient is known to have chronic atrial fibrillation and is chronically anticoagulated with Eliquis. Pt sees DR Jacinto, pt having ongoing, retrosternal chest pain and few palpitations. Pt for heart cath on thursday. Review of Systems Review of Systems: All systems reviewed & are unremarkable except as noted in HPI and below Exam Const: General: cooperative, no acute distress, alert and awake Nutritional Appearance: obese Orientation/consciousness: oriented x3 HENMT: Head: normal to inspection General nose exam: external nose normal Face and sinus: normal facial exam Mouth: Yes oral mucosae normal and Yes oropharynx normal Eyes: Pupils: PERRL EOM: EOM intact bilaterally Neck: Neck: supple and no JVD Thyroid: thyroid normal Lymphatic: lymphadenopathy not noted Resp: Effort & Inspection: normal respiratory effort Auscultation: clear to auscultation bilaterally Cardio: Rate: tachycardic Rhythm: abnormal rhythm irregularly irregular Heart sounds: no murmurs GI: Inspection: normal to inspection Auscultation: normal bowel sounds Skin: General skin exam: normal color and no rashes or lesions noted Neuro: General: oriented x3 Cranial nerves: Yes CN's II-XII intact bilaterally and Yes PERRL Speech: normal speech Motor exam (neuro): strength 5/5 throughout Sensory Exam: normal sensation Extrem: General: normal to inspection and edema (Mild bilateral edema) Psych: Mental Status: mental status grossly normal Affect: normal affect Objective Data Vital Signs Vital Signs: Vital Signs - 24 hr 08/06/19 14:00 08/06/19 16:0
[2019-08-07 15:27] LABS: Partial Thromboplastin Time 64.8 SECONDS (22.3-36.8)
[2019-08-07] MEDS: HEPARIN SOD/D5W 100 UNITS/ML 25,000 UNITS/250 ML BAG 12 UNITS IV CONT (15:41)
[2019-08-07] MEDS: HEPARIN SODIUM 5,000 UNITS/ML VIAL 2000 UNITS IV PUSH (15:44)
[2019-08-07 16:10] LABS: Glucose Point of Care 139 (65-105)
[2019-08-07] MEDS: CYCLOBENZAPRINE HCL 10 MG TABLET PO (20:42)
[2019-08-07] MEDS: TRAZODONE HCL 50 MG TABLET PO (20:43)
[2019-08-07 21:13] LABS: Glucose Point of Care 146 (65-105)
[2019-08-07 22:07] LABS: Partial Thromboplastin Time 107.2 SECONDS (22.3-36.8)
[2019-08-08] VITALS (28 sets, daily range): BP systolic 105–156; BP diastolic 79–109; PULSE 62–116; RESP 13–20; TEMP 35.9–36.6; O2SAT 90–100
[2019-08-08 04:48] LABS: Partial Thromboplastin Time 85.6 SECONDS (22.3-36.8)
[2019-08-08 08:06] LABS: Glucose Point of Care 193 (65-105)
[2019-08-08] MEDS: POTASSIUM CHLORIDE 10 MEQ TABLET.ER PO (08:44)
[2019-08-08] MEDS: PAROXETINE 20 MG TABLET 40 MG PO (08:44)
[2019-08-08] MEDS: CHOLECALCIFEROL 1,000 UNIT TABLET 2000 UNITS PO (08:44)
[2019-08-08] MEDS: METOPROLOL TARTRATE 50 MG TAB 100 MG PO ×2 (08:44→17:56)
[2019-08-08] MEDS: MAGNESIUM OXIDE 400 MG TABLET PO (08:44)
[2019-08-08] MEDS: CYANOCOBALAMIN 1,000 MCG TABLET 1000 MCG PO (08:44)
[2019-08-08] MEDS: ALPRAZOLAM 0.5 MG TABLET PO ×2 (08:44→21:30)
[2019-08-08] MEDS: PREGABALIN 75 MG CAPSULE 150 MG PO ×3 (08:45→21:29)
[2019-08-08] MEDS: ROSUVASTATIN 10 MG TABLET PO (08:45)
[2019-08-08 10:13] LABS: Hematocrit 34.8 % (37.0-47.0); Hemoglobin 10.5 g/dL (12.0-15.0); Mean Corpuscular HGB Conc 30.2 g/dl (32-36); Mean Corpuscular Hemoglobin 27.6 pg (26-34); Mean Corpuscular Volume 91.6 fl (80-100); Mean Platelet Volume 11.1 fl (7.4-10.4); Platelet Count Result 189 k/mm3 (150-375); Red Cell Distribution Width 17.2 % (11.5-14.5); White Blood Count 5.2 K/mm3 (4.5-10.0)
[2019-08-08 10:26] LABS: Blood Urea Nitrogen 12 mg/dL (7-17); Calcium 8.7 mg/dL (8.4-10.2); Carbon Dioxide 29 mmol/L (22-30); Chloride 102 mmol/L (98-107); Estimated CRCL calculation 69 ml/min; Estimated Glomerular Filt Rate > 60; Glucose 196 mg/dL (65-105); Magnesium 1.7 mg/dL (1.6-2.3); Potassium 3.4 mmol/L (3.4-5.0); Sodium 140 mmol/L (137-145)
--- NOTE | 2019-08-08 11:02 | WPDMODSED ---
Moderate Sedation Note-Pt Data Patient Data Diagnosis: coronary artery disease with previous PCI to the RPDA several years ago chronic atrial fibrillation Present Complaint: symptoms of exertional dyspnea /chest pain concerning for recurrent myocardial ischemia Procedure to be performed/Plan: follow-up left heart catheterization Allergies Allergy/AdvReac Type Severity Reaction Status Date / Time cephalexin Allergy Unknown Nausea Verified 08/05/19 14:24 codeine Allergy Unknown Unknown Verified 08/05/19 14:24 Sulfa (Sulfonamide Allergy Unknown Unknown Verified 08/05/19 14:24 Antibiotics) ciprofloxacin AdvReac Unknown stomach Verified 08/05/19 14:24 ache, pains Home Medications Medication Instructions Recorded Confirmed Type alprazolam 0.5 mg PO TID 08/05/19 08/05/19 History apixaban [Eliquis] 5 mg PO BID 08/05/19 08/05/19 History cholecalciferol (vitamin D3) 2,000 unit PO DAILY 08/05/19 08/05/19 History [Vitamin D3] cyanocobalamin (vitamin B-12) 1,000 mcg PO DAILY 08/05/19 08/05/19 History [Vitamin B-12] cyclobenzaprine 10 mg PO TID 08/05/19 08/05/19 History ferrous gluconate 324 mg PO DAILY 08/05/19 08/05/19 History furosemide 40 mg PO DAILY 08/05/19 08/05/19 History glipizide 2.5 mg PO DAILY 08/05/19 08/05/19 History magnesium oxide 400 mg PO BID 08/05/19 08/05/19 History metformin [Glucophage] 1,000 mg PO DAILY 08/05/19 08/05/19 History metoprolol tartrate 100 mg PO BID 08/05/19 08/05/19 History multivit with min-folic acid 1 mg PO DAILY 08/05/19 08/05/19 History [Adult One Daily Multivitamin] oxycodone-acetaminophen 1 tablet PO Q6H PRN 08/05/19 08/05/19 History paroxetine HCl 40 mg PO DAILY 08/05/19 08/05/19 History potassium chloride 10 meq PO DAILY 08/05/19 08/05/19 History pregabalin [Lyrica] 150 mg PO QID 08/05/19 08/05/19 History rosuvastatin [Crestor] 10 mg PO DAILY 08/05/19 08/05/19 History trazodone 50 mg PO HS 08/05/19 08/05/19 History Current Medications: Active Medications Alprazolam (Xanax) 0.5 mg PO TID [facility] Last Admin: 08/08/19 08:44 Dose: 0.5 mg Documented by: Cyanocobalamin (Vitamin B-12 Tab) 1,000 mcg PO DAILY [facility] Last Admin: 08/08/19 08:44 Dose: 1,000 mcg Documented by: Cyclobenzaprine HCl (Flexeril) 10 mg PO [facility] Last Admin: 08/07/19 20:42 Dose: 10 mg Documented by: Dextrose (Dextrose 50% Syringe) 12.5 gm IV PUSH PRN PRN; Protocol PRN Reason: Hypoglycemia Furosemide (Lasix Tablet) 40 mg PO DAILY [facility] Last Admin: 08/07/19 10:01 Dose: 40 mg Documented by: Glipizide (Glucotrol Xl) 2.5 mg PO DAILY [facility] Last Admin: 08/08/19 08:48 Dose: Not Given Documented by: Glucagon (Glucagon For Inj) 1 mg IM PRN PRN; Protocol PRN Reason: Hypoglycemia Glucose (Glutose 15) 15 gm PO PRN PRN; Protocol PRN Reason: Hypoglycemia Heparin Sodium (Porcine) (Heparin Sodium) 4,000 units IV PUSH PRN PRN PRN Reason: aPTT less than 55 seconds Last Admin: 08/06/19 18:04 Dose: 4,000 units Documented by: Heparin Sodium (Porcine) (Heparin Sodium) 2,000 units IV PUSH PRN PRN PRN Reason: aPTT 55 - 70 seconds Last Admin: 08/07/19 15:44 Dose: 2,000 units Documented by: Heparin Sodium/Dextrose (Heparin Sodium/D5w 100 Units/Ml) 25,000 units in 250 mls @ 12 mls/hr IV CONT .[id number] [facility]; Protocol Last Titration: 08/08/19 04:30 Dose: 1,200 units/hr, 12 mls/hr Documented by: Dextrose (Dextrose 5% 1,000 Ml) 1,000 mls @ 100 mls/hr IVPB PRN PRN; Protocol PRN Reason: Hypoglycemia Ceftriaxone Sodium/Dextrose (Rocephin 1 Gm/D5w 50 Ml) 1 gm in 50 mls @ 100 mls/hr IVPB Q24H [facility] Last Infusion: 08/07/19 22:20 Dose: Infused Documented by: Insulin Aspart (Novolog) 3 - 6 units SUB-Q TIDWM [facility]; Protocol Last Admin: 08/08/19 08:35 Dose: Not Given Documented by: Magnesium Oxide (Mag-Ox) 400 mg PO QAM [facility] Last Admin: 08/08/19 08:44 Dose: 400 mg Documented by: Metformin HCl (Glucophage) 1,000 mg PO DAILY [facility] Last Admin: 08/08/19 08:48 Dose: Not Given Documented by: Gary
--- NOTE | 2019-08-08 12:06 | WPDCARDPROC ---
Cardiac Cath Procedure Note Date of procedure:: 08/08/19 Performing physician:: Johny Doll MD Indication:: Symptoms concerning for exertional angina in patient with known history of CAD with right coronary PDA intervention in 2017. chronic atrial fibrillation Brief clinical history:: 63-year-old woman with history of chronic atrial fibrillation and coronary artery disease. In 2017 she underwent RPDA intervention using a drug-eluting stent. She now reports a history of several weeks of exertional shortness of breath with retrosternal pressure with modest activity. Systemic anticoagulation has now been withdrawn and follow-up angiography has been schedule for today Procedure Procedure performed:: left heart catheterization with left ventriculography and coronary angiography Sedation/Medication given:: Versed 2 mg fentanyl 50 mg case start time 11:45 a.m. case end time 12:02 p.m. sedation provided by Angela Lynch RN Access site:: right femoral artery Estimated blood loss:: 10-15 cc Procedure note:: patient was brought to the cardiac catheterization lab in the postabsorptive state. The right femoral artery was punctured using the modified Seldinger technique and a 5 [place] vascular sheath was placed. I utilized a 5 [place] angle pigtail catheter to document left-sided hemodynamics and injected LV g in the DAVIS projection. Following this right coronary angiography was performed using a JR4 catheter the left coronary was injected using a 5 [place] FL4 catheter. This any angiograms were then reviewed in detail and the case was terminated. Patient was taken to the holding area for manual sheath removal. Findings:: The central aortic pressure is 138 over 76 left ventricle 138 over 2 end-diastolic pressure 16 there is no significant gradient on pullback across the aortic valve. Hemodynamic assessment is a little challenging because of chronic atrial fibrillation left ventricle is mildly enlarged with mild global hypocontractility noted. Global ejection fraction is in the vicinity of 40% left main coronary artery is medium in caliber with modest proximal stenosis which does not appear to be flow limiting. The LAD is a medium caliber artery which gives rise to a large diagonal branch. Immediately after the origin of this diagonal branch there appears to be an eccentric 90% stenosis in the LAD. FINNISH cranial projection. The origin of the diagonal branch also is diseased where there appears to be about 60% stenosis. The circumflex is a moderate caliber artery giving rise to the marginal branches there are no significant circ circumflex lesions there is only 1 significant OM branch. The right coronary artery is moderate caliber and dominant to the posterior circulation. Right coronary proper is free of significant disease. There is visible stent material in the proximal 3rd of the RPDA. The stent appears to be somewhat oversized were there is about -20% stenosis. There is good flow up to the distal part of the RPDA. Interestingly there is also [id number] collateral filling of the RPDA up to the distal margin of the stent. Conclusion:: Coronary artery disease with exertional anginal symptomatology which appears to be result of complex proximal disease in the LAD also involving the very proximal large diagonal branch. PCI this disease is feasible but significantly higher risk due to angiographic complexity and proximal bifurcation location patent stent in the RPDA which appears to be oversized angiographically. Angiography from 2013 demonstrated a poor antegrade flow in this vessel following the stent deployment which probably resulted in the development of the collaterals which are also visualized. Mild global left ventricular systolic dysfunction patient requires revascularization of the LAD and probably the major diagonal branch as well. Will refer her to a higher level of care due to the angiographic complexity of
--- NOTE | 2019-08-08 12:30 | SUR.PHASEI ---
1230 dr. herron at bedside attempting to speak with patient, pt is drowsy, dr. herron will revisit pt when she is more awake.
--- NOTE | 2019-08-08 12:47 | SUR.PHASEI ---
1247 leg immobilizer placed on r leg d/t pt wiggling right leg, importance of bedrest and restrictions reviewed with patient, she verbalizes understanding but is slightly drowsy, will continue to reinforce instructions with pt and pts family at bedside.
[2019-08-08] MEDS: SODIUM CHLORIDE 0.9% IV 1,000 ML 125 ML IV CONT (14:14)
[2019-08-08 14:22] LABS: Glucose Point of Care 158 (65-105)
[2019-08-08 17:44] LABS: Glucose Point of Care 169 (65-105)
--- NOTE | 2019-08-08 18:12 | PM.IMPN ---
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 The patient is known to have chronic atrial fibrillation and is chronically anticoagulated with Eliquis. Pt sees DR Jacinto, pt was having ongoing, retrosternal chest pain and few palpitations. Patient was seen by pathology supervisor and had a cardiac cath today which showed patient has severe CAD and unamendable to angiography and will require surgical intervention. Patient will be transferred to [facility] (2) Dysuria: Code(s): R30.0 - Dysuria Status: Acute Assessment and Plan: Will check a urinalysis reflex culture. Pt is being treated for UTI, pt to follow with Urology for her recurrent urinary symptoms. (3) Diabetes: Code(s): E11.9 - Type 2 diabetes mellitus without complications Status: Chronic Assessment and Plan: Accu-Cheks, sliding scale insulin coverage. Continue home metformin and glipizide. (4) Hypertension: Code(s): I10 - Essential (primary) hypertension Status: Chronic Assessment and Plan: Monitor blood pressure. continue beta-martine. (5) Afib: Qualifiers: Atrial fibrillation type: other persistent Qualified Code(s): I48.19 - Other persistent atrial fibrillation Code(s): I48.91 - Unspecified atrial fibrillation Status: Chronic Assessment and Plan: Currently rate controlled. Continue aspirin therapy and beta martine. Will hold Eliquis for now. Pt to continue on heparin drip for now, for anticoagulation (6) Hypercholesterolemia: Code(s): E78.00 - Pure hypercholesterolemia, unspecified Status: Chronic Assessment and Plan: Continue statin therapy. 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 The patient is known to have chronic atrial fibrillation and is chronically anticoagulated with Eliquis. Pt sees DR Jacinto, pt was having ongoing, retrosternal chest pain and few palpitations. Patient was seen by pathology supervisor and had a cardiac cath today which showed patient has severe CAD and unamendable to angiography and will require surgical intervention. Patient will be transferred to [facility] Review of Systems Review of Systems: All systems reviewed & are unremarkable except as noted in HPI and below Exam Const: General: cooperative, no acute distress, alert and awake Nutritional Appearance: obese Orientation/consciousness: oriented x3 HENMT: Head: normal to inspection General nose exam: external nose normal Face and sinus: normal facial exam Mouth: Yes oral mucosae normal and Yes oropharynx normal Eyes: Pupils: PERRL EOM: EOM intact bilaterally Neck: Neck: supple and no JVD Thyroid: thyroid normal Lymphatic: lymphadenopathy not noted Resp: Effort & Inspection: normal respiratory effort Auscultation: clear to auscultation bilaterally Cardio: Rate: tachycardic Rhythm: abnormal rhythm irregularly irregular Heart sounds: no murmurs GI: Inspection: normal to in
[2019-08-08 20:17] LABS: Glucose Point of Care 203 (65-105)
[2019-08-08] MEDS: TRAZODONE HCL 50 MG TABLET PO (21:29)
[2019-08-08] MEDS: CYCLOBENZAPRINE HCL 10 MG TABLET PO (21:30)
[2019-08-09] VITALS (15 sets, daily range): BP systolic 115–158; BP diastolic 85–97; PULSE 100–132; RESP 18–22; TEMP 35.9–36.6; O2SAT 92–100
[2019-08-09 04:58] LABS: Hematocrit 34.8 % (37.0-47.0); Hemoglobin 10.4 g/dL (12.0-15.0); Mean Corpuscular HGB Conc 29.9 g/dl (32-36); Mean Corpuscular Hemoglobin 27.7 pg (26-34); Mean Corpuscular Volume 92.8 fl (80-100); Mean Platelet Volume 11.2 fl (7.4-10.4); Platelet Count Result 205 k/mm3 (150-375); Red Blood Count 3.75 M/mm3 (4.2-5.4); Red Cell Distribution Width 17.5 % (11.5-14.5); White Blood Count 6.6 K/mm3 (4.5-10.0)
[2019-08-09 05:14] LABS: Blood Urea Nitrogen 12 mg/dL (7-17); Calcium 8.6 mg/dL (8.4-10.2); Carbon Dioxide 26 mmol/L (22-30); Chloride 105 mmol/L (98-107); Estimated CRCL calculation 69 ml/min; Estimated Glomerular Filt Rate > 60; Glucose 216 mg/dL (65-105); Potassium 3.8 mmol/L (3.4-5.0); Sodium 139 mmol/L (137-145)
--- NOTE | 2019-08-09 06:54 | ECG_ITS ---
Measurements Intervals [place] Rate: 106 P: NE: 0 QRS: 55 QRSD: 125 T: 2 QT: 380 QTc: 505 Interpretive Statements ATRIAL FIBRILLATION WITH RAPID VENTRICULAR RESPONSE LEFT BUNDLE BRANCH BLOCK LOW VOLTAGE- LIMB LEADS ABNORMAL ECG Electronically Signed On 08-09-2019 7:23:35 THREAT ANALYST by Zac Harvey D.O.
[2019-08-09] MEDS: NITROGLYCERIN SL 0.4 MG TABLET SUBLINGUAL ×2 (07:10→07:15)
[2019-08-09] MEDS: NITROGLYCERIN SL 0.4 MG TABLET (07:30)
[2019-08-09 07:40] LABS: Troponin I < 0.012 ng/mL (0.000-0.034)
[2019-08-09 08:47] LABS: Glucose Point of Care 181 (65-105)
--- NOTE | 2019-08-09 09:24 | PM.PNCARD ---
Progress Note: A&P Assessment and Plan (1) Chest pain: Qualifiers: Chest pain type: unspecified Qualified Code(s): R07.9 - Chest pain, unspecified Code(s): R07.9 - Chest pain, unspecified Status: Acute Assessment and Plan: Troponin negative x3. Cardiac catheterization 08/08/2019:Coronary artery disease with exertional anginal symptomatology which appears to be result of complex proximal disease in the LAD also involving the very proximal large diagonal branch. PCI this disease is feasible but significantly higher risk due to angiographic complexity and proximal bifurcation location. Patent stent in the RPDA which appears to be oversized angiographically. Angiography from 2012 demonstrated a poor antegrade flow in this vessel following the stent deployment which probably resulted in the development of the collaterals which are also visualized. Mild global left ventricular systolic dysfunction She requires revascularization of the LAD and probably the major diagonal branch as well. Will refer her to a higher level of care due to the angiographic complexity of this disease and resultant increase risk of PCI at [facility]. Plan to transfer to [facility] however cardiac catheterization reviewed by Dr Guevara with Dr Lorenzo. He recommended transfer to [place] for high risk PCI. Had chest discomfort this morning. Relieved with nitroglycerin. Add nitroglycerin 1 inch q.6 hours. (2) Hypertension: Code(s): I10 - Essential (primary) hypertension Status: Chronic Assessment and Plan: Elevated at times. Continue current medications (3) Afib: Qualifiers: Atrial fibrillation type: other persistent Qualified Code(s): I48.19 - Other persistent atrial fibrillation Code(s): I48.91 - Unspecified atrial fibrillation Status: Chronic Assessment and Plan: Permanent. Occasionally tachycardic especially after activity. Continue beta-martine. Anticoagulated with Eliquis. Eliquis has been on hold for cardiac catheterization. Continue to hold anticoagulation. (4) Hypercholesterolemia: Code(s): E78.00 - Pure hypercholesterolemia, unspecified Status: Chronic Assessment and Plan: Continue rosuvastatin. Additional Plan Will arrange transfer to [facility]. Plan discussed with Dr. Lorenzo 1100 08/09/2019 Subjective Interval history: Follow-up for coronary artery disease, unstable angina Date of service: 08/09/2019 Subjective: Chest pressure this morning with exertional activity. Resolved with 3 nitroglycerin. Short of breath with exertional activity. No lightheadedness or palpitations. Review of Systems Constitutional: Constitutional: Reports fatigue Eyes: Eyes: Denies blurry vision ENT: Reports hearing normal, Denies dysphagia and Denies dizziness Cardiovascular: Cardiovascular: Reports chest pain, Denies palpitations and Reports dyspnea on exertion Respiratory: Respiratory: Reports dyspnea and Reports dyspnea on exertion Gastrointestinal: Gastrointestinal: Denies abdominal pain and Denies dysphagia Genitourinary: Genitourinary: Denies hematuria Musculoskeletal: Musculoskeletal: Denies abnormal gait and Denies back pain Integumentary/Breasts: Skin/Breast: Denies non-healing lesions Neurologic: Denies abnormal gait, Denies dizziness and Denies syncope Endocrine: Endocrine: Reports fatigue Hematologic/Lymphatic: Hematologic/Lymphatic: Denies easy bleeding and Reports easy bruising (Related anticoagulation) Exam Const: General: comfortable and no acute distress HENMT: Mouth: Yes moist mucous membranes Eyes: Conjunctivae: conjunctivae normal Sclera: sclerae normal Neck: Neck: supple and no JVD Resp: Effort & Inspection: normal respiratory effort and able to speak in complete sentences Auscultation: ral
[2019-08-09] MEDS: ALPRAZOLAM 0.5 MG TABLET PO ×2 (09:26→13:10)
[2019-08-09] MEDS: NITROGLYCERIN OINTMENT 1 INCH DOSE TRANSDERM ×2 (09:26→16:58)
[2019-08-09] MEDS: PREGABALIN 75 MG CAPSULE 150 MG PO ×3 (09:26→16:57)
[2019-08-09] MEDS: ROSUVASTATIN 10 MG TABLET PO (09:27)
[2019-08-09] MEDS: CHOLECALCIFEROL 1,000 UNIT TABLET 2000 UNITS PO (09:27)
[2019-08-09] MEDS: CYANOCOBALAMIN 1,000 MCG TABLET 1000 MCG PO (09:27)
[2019-08-09] MEDS: MAGNESIUM OXIDE 400 MG TABLET PO (09:27)
[2019-08-09] MEDS: FUROSEMIDE 40 MG TABLET PO (09:27)
[2019-08-09] MEDS: glipiZIDE XL 2.5 MG TAB.ER.24 PO (09:28)
[2019-08-09] MEDS: POTASSIUM CHLORIDE 10 MEQ TABLET.ER PO (09:28)
[2019-08-09] MEDS: metFORMIN HCL 500 MG TABLET 1000 MG PO (09:28)
[2019-08-09] MEDS: PAROXETINE 20 MG TABLET 40 MG PO (09:28)
[2019-08-09] MEDS: METOPROLOL TARTRATE 50 MG TAB 100 MG PO ×2 (09:28→16:58)
[2019-08-09 14:10] LABS: Glucose Point of Care 159 (65-105)
[2019-08-09] MEDS: ACETAMINOPHEN 325 MG TABLET 650 MG PO (16:56)
[2019-08-09 18:17] LABS: Glucose Point of Care 158 (65-105)
--- NOTE | 2019-09-07 09:20 | PM.DS ---
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 The patient is known to have chronic atrial fibrillation and is chronically anticoagulated with Eliquis. Pt sees DR Jacinto, pt was having ongoing, retrosternal chest pain and few palpitations. Patient was seen by movement therapist and had a cardiac cath today which showed patient has severe CAD and unamendable to angiography and will require surgical intervention. Patient will be transferred to [facility] (2) Dysuria: Code(s): R30.0 - Dysuria Status: Acute Assessment and Plan: Will check a urinalysis reflex culture. Pt is being treated for UTI, pt to follow with Urology for her recurrent urinary symptoms. (3) Diabetes: Code(s): E11.9 - Type 2 diabetes mellitus without complications Status: Chronic Assessment and Plan: Accu-Cheks, sliding scale insulin coverage. Continue home metformin and glipizide. (4) Hypertension: Code(s): I10 - Essential (primary) hypertension Status: Chronic Assessment and Plan: Monitor blood pressure. continue beta-martine. (5) Afib: Qualifiers: Atrial fibrillation type: other persistent Qualified Code(s): I48.19 - Other persistent atrial fibrillation Code(s): I48.91 - Unspecified atrial fibrillation Status: Chronic Assessment and Plan: Currently rate controlled. Continue aspirin therapy and beta martine. Will hold Eliquis for now. Pt to continue on heparin drip for now, for anticoagulation (6) Hypercholesterolemia: Code(s): E78.00 - Pure hypercholesterolemia, unspecified Status: Chronic Assessment and Plan: Continue statin therapy. 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 The patient is known to have chronic atrial fibrillation and is chronically anticoagulated with Eliquis. She reports having intermittent chest pain with exertional activities over the past couple of weeks. Today while she was at her doctor's office she started to experience chest pain with associated shortness of breath. She also experience palpitations. She tells me that recently she has been battling multiple UTIs and just finished a course of antibiotics a few days ago when she had a urinary tract infection with associated hematuria. She also reports that over the past few days she started having dysuria once again. She denies any active hematuria at this time. The patient also does report a subjective fever and nonproductive coughing but denies any significant lower extremity swelling, headache, focal neurological symptoms, nausea, vomiting, diarrhea, or rectal bleeding. The patient was evaluated emergency room today and her initial and 2nd troponin are negative. EKG was performed which demonstrated atrial fibrillation but no significant ST segment elevation or depression. Cardiology has been co
--- NOTE | 2019-09-11 16:45 | PM.TDS ---
Transfer Discharge Sum: Prov Provider Date of admission: 08/08/19 12:52 Primary care physician: UNKNOWN,DOCTOR Admitting clinician: Wesley Astudillo MD Consults: 08/05/19 15:38 Consult to Physician Routine Comment: Consulting Provider: Johny Doll Reason for consultation: feeling of heart racing, chest pressure with exertion Has provider been notified: Yes DS: Diagnosis Admitting Diagnosis Admitting Diagnosis: Chest pain, unspecified Discharge Diagnosis (1) Chest pain: Qualifiers: Chest pain type: unspecified Qualified Code(s): R07.9 - Chest pain, unspecified Code(s): R07.9 - Chest pain, unspecified Status: Acute Assessment and Plan: 63-year-old diabetic female with known history of coronary artery disease status post 1 stent placed 2 years ago who was referred to the hospital on 08/05 from her order packer office secondary to chest pain and palpitations. The patient is known to have chronic atrial fibrillation and is chronically anticoagulated with Eliquis. Pt sees DR Jacinto, pt was having ongoing, retrosternal chest pain and few palpitations. Patient was seen by order packer and had a cardiac cath today which showed patient has severe CAD and unamendable to angiography and will require surgical intervention. Patient will be transferred to [facility] Transfer Discharge Sum: Med Medications Active and Home Medications: Home Medications alprazolam 0.5 mg PO TID 08/05/19 [History Confirmed 08/05/19] apixaban [Eliquis] 5 mg PO BID 08/05/19 [History Confirmed 08/05/19] cholecalciferol (vitamin D3) [Vitamin D3] 2,000 unit PO DAILY 08/05/19 [History Confirmed 08/05/19] cyanocobalamin (vitamin B-12) [Vitamin B-12] 1,000 mcg PO DAILY 08/05/19 [History Confirmed 08/05/19] cyclobenzaprine 10 mg PO TID 08/05/19 [History Confirmed 08/05/19] ferrous gluconate 324 mg PO DAILY 08/05/19 [History Confirmed 08/05/19] furosemide 40 mg PO DAILY 08/05/19 [History Confirmed 08/05/19] glipizide 2.5 mg PO DAILY 08/05/19 [History Confirmed 08/05/19] magnesium oxide 400 mg PO BID 08/05/19 [History Confirmed 08/05/19] metformin [Glucophage] 1,000 mg PO DAILY 08/05/19 [History Confirmed 08/05/19] metoprolol tartrate 100 mg PO BID 08/05/19 [History Confirmed 08/05/19] multivit with min-folic acid [Adult One Daily Multivitamin] 1 mg PO DAILY 08/05/19 [History Confirmed 08/05/19] oxycodone-acetaminophen 1 tablet PO Q6H PRN 08/05/19 [History Confirmed 08/05/19] paroxetine HCl 40 mg PO DAILY 08/05/19 [History Confirmed 08/05/19] potassium chloride 10 meq PO DAILY 08/05/19 [History Confirmed 08/05/19] pregabalin [Lyrica] 150 mg PO QID 08/05/19 [History Confirmed 08/05/19] rosuvastatin [Crestor] 10 mg PO DAILY 08/05/19 [History Confirmed 08/05/19] trazodone 50 mg PO HS 08/05/19 [History Confirmed 08/05/19] Transfer Discharge Sum: Hosp Hospital Course Hospital course: Treasure Brown is a 63 year old female 63-year-old diabetic female with known history of coronary artery disease status post 1 stent placed 2 years ago who was referred to the hospital on 08/05 from her order packer office secondary to chest pain and palpitations. The patient is known to have chronic atrial fibrillation and is chronically anticoagulated with Eliquis. Pt sees DR Jacinto, pt was having ongoing, retrosternal chest pain and few palpitations. Patient was seen by order packer and had a cardiac cath today which showed patient has severe CAD and unamendable to angiography and will require surgical intervention. Patient will be transferred to [facility] once a bed is available Time Spent with Patient Time attestation: Total time spent providing and/or coordinating transfer services: Patient was seen and examined at the time of the discharge Condition at discharge is stable Code status: Full code. Time spent preparing discharge summary, discharge medications, discussing discharge plannin
== END 2019-08-09 19:39 | disposition short-term general hospital (02) | DRG 287 ==
LOC: ANHED 15:44 → ANHIMU 15:51
PROVIDERS: Family Medicine; Specialist; Admitting Provider Internal Medicine; Emergency Provider General Practice; Visit Provider Family Medicine
PROC: 4A023N7 Measurement of Cardiac Sampling and Pressure, Left Heart, Percutaneous Approach (ICD-10-PCS; CPT 93452; principal; 2019-08-08 11:30)
DX: I25.119 Atherosclerotic heart disease of native coronary artery with unspecified angina pectoris (principal); I48.19 Other persistent atrial fibrillation; N39.0 Urinary tract infection, site not specified; Z95.5 Presence of coronary angioplasty implant and graft; Z79.01 Long term (current) use of anticoagulants; Z87.440 Personal history of urinary (tract) infections; F41.8 Other specified anxiety disorders; M19.90 Unspecified osteoarthritis, unspecified site; E78.00 Pure hypercholesterolemia, unspecified; I10 Essential (primary) hypertension; E11.42 Type 2 diabetes mellitus with diabetic polyneuropathy; D63.8 Anemia in other chronic diseases classified elsewhere
CPT/HCPCS: 36415; 71046; 80048; 81001; 83735; 83880; 84484; 85025; 85027; 85610; 85730; 93005; 93458; 96365; 96366; 96368; 99285; A9270; C1887; C1894; G0378; J0696; J1644; J2250; J3010; J7030; J7040